=== PATIENT | male | born 1975 | race Caucasian/White ===

== ENCOUNTER 2024-05-27 06:58 | Day surgery (SDC) | payer BC ==
[2024-05-27] MEDS ORDERED: Propofol 200 MG/20 ML SDV IV ONE (06:59)
[2024-05-27] MEDS ORDERED: Lidocaine 2% 100 MG/5 ML Syringe IVPUSH ONE (06:59)
[2024-05-27] MEDS ORDERED: Sodium Chloride 0.9% 10 ML Syringe FLUSH PRN (07:00)
[2024-05-27] MEDS: Lactated Ringers 1,000 ML IV SCH (08:08)
[2024-05-27] MEDS: Simethicone Drops 40 MG/0.6 ML 30 ML Bottle ONE (08:21)
== END 2024-05-27 09:38 | disposition home or self-care (01) ==
LOC: FB.SDS 06:58
PROVIDERS: ATTEND Surgery
DX: Z12.11 Encounter for screening for malignant neoplasm of colon (principal); D12.6 Benign neoplasm of colon, unspecified; K57.30 Diverticulosis of large intestine without perforation or abscess without bleeding; K42.0 Umbilical hernia with obstruction, without gangrene; E66.9 Obesity, unspecified; I10 Essential (primary) hypertension; Z68.33 Body mass index [BMI] 33.0-33.9, adult; Z79.899 Other long term (current) drug therapy
CPT/HCPCS: 00811; 88305; A9270-GY; J2704; J7120

== ENCOUNTER 2025-01-10 09:31 | Emergency (ER) | payer OTHER, BC ==
[2025-01-10] MEDS: Diphtheria,Pertussis(Acell),Tetanus Vaccine 0.5 ML Syringe IM ONE (10:14)
[2025-01-10] MEDS: Silver Sulfadiazine 1% Crm 50 GM Tube TOP ONE (10:15)
== END 2025-01-10 10:42 | disposition home or self-care (01) ==
LOC: FB.ED 09:31
DX: T21.42XA Corrosion of unspecified degree of abdominal wall, initial encounter (principal); T22.43 Corrosion of unspecified degree of upper arm; T32.0 Corrosions involving less than 10% of body surface; T59.891A Toxic effect of other specified gases, fumes and vapors, accidental (unintentional), initial encounter; S40.021A Contusion of right upper arm, initial encounter; Z23 Encounter for immunization; X04.XXXA Exposure to ignition of highly flammable material, initial encounter; Y93.89 Activity, other specified; Y99.0 Civilian activity done for income or pay
CPT/HCPCS: 16020; 90471; 90715; 99283; A9270